=== PATIENT | male | born 1980 | race Caucasian/White ===

== ENCOUNTER → 2024-06-24 11:34 | Outpatient (REF) | payer BC, SELFPAY | LOC: DHSLP 11:34 | PROVIDERS: ATTENDING PHYSICIAN Nurse Practitioner | DX: G47.33 Obstructive sleep apnea (adult) (pediatric) (principal) | CPT/HCPCS: 95800 ==

== ENCOUNTER → 2025-03-24 09:09 | Outpatient (REF) | payer SELFPAY | LOC: HWRAD 09:09 | PROVIDERS: ATTENDING PHYSICIAN Nurse Practitioner | DX: E78.5 Hyperlipidemia, unspecified (principal); F03.90 Unspecified dementia, unspecified severity, without behavioral disturbance, psychotic disturbance, mood disturbance, and anxiety | CPT/HCPCS: 75571 ==